=== PATIENT | female | born 1935 | race Caucasian/White ===

== ENCOUNTER → 2018-01-22 11:55 | Outpatient (CLI) | payer MEDICARE, BC ==
[2016-06-07 13:35] VITALS: BMI 24.3
[~2018-01-22 11:55] MED LIST: CIPRO500 MG PO; DITROPAN X10 MG/BOTT PO; FIBER LAXATIVE500 MG PO; FIBER-TABS625 MG PO; FLAGYL 500500 MG/100 PO; FLAGYL500 MG PO; LEVAQUIN500 MG PO; LISINOPRIL-HCTZ1 TA2 PO; NUCYNTA50 MG PO; PRILOSEC20 MG PO; PRINZIDE 10/12.1 TA1 PO; PROBIOTIC1 EAC1 PO; SYNTHROID75 MCG PO
== END | disposition home or self-care (01) ==
LOC: D.CT 11:55
DX: R51 Headache (principal)